=== PATIENT | female | born 1980 ===

== ENCOUNTER 2020-08-28 10:30 | Day surgery (SDC) | payer OTHER ==
[~2020-08-28 10:30] MED LIST: PRILOSEC OTC20 MG PO
[2020-08-28] MEDS ORDERED: PERCOCET 5-3251 EACH PO (16:38)
[2020-08-28] MEDS ORDERED: DERMOPLAST PAIN78 GM TOP (16:39)
[2020-08-28] MEDS ORDERED: NEURONTIN300 MG PO (16:39)
== END 2020-08-28 23:05 | disposition home or self-care (01) ==
LOC: CIR.AMB 10:30
PROVIDERS: ATTEND Surgery
DX: A63.0 Anogenital (venereal) warts (principal); Z20.822 Contact with and (suspected) exposure to COVID-19